=== PATIENT | male | born 1975 | race Caucasian/White ===

== ENCOUNTER 2016-07-11 11:54 | Emergency (ER) | payer MEDICAID ==
[~2016-07-11] VITALS: Ht 165.1 cm; Wt 100.7 kg
[2016-07-11 12:09] VITALS: BP 150/94
--- NOTE | 2016-07-11 12:38 | NUR ---
PATIENT TO BED 7 AT THIS TIME.
--- NOTE | 2016-07-11 12:44 | NUR ---
PT STATES LEFT RIB PAIN FOR 3 DAYS . DENIES N/V/D; SKIN IS PINK/WARM/DRY; AAOX4 WITH EVEN AND STEADY GAIT; PT DENIES ANY FEVER, CP, SOB, OR COUGH AT THIS TIME; PATIENT STATES PAIN OF 8/10 AT THIS TIME; VSS; PATIENT POSITIONED FOR COMFORT; HOB ELEVATED; BED DOWN.
--- NOTE | 2016-07-11 13:40 | NUR ---
PT RESTING IN BED. STATES NO PAIN WITHOUT MOVEMENT. NO S/S OF RESPIRATORY DISTRESS NOTED.
--- NOTE | 2016-07-11 13:50 | NUR ---
DR. CARMONA PRESENTED AT BEDSIDE TO ASSESS PT.
[2016-07-11] MEDS ORDERED: KETOROLAC 60 MG/2 ML VIAL IM ONE (13:55)
--- NOTE | 2016-07-11 14:47 | NUR ---
Patient discharged with v/s stable. Written and verbal after care instructions given and explained. Patient alert, oriented and verbalized understanding of instructions. Ambulatory with steady gait. All questions addressed prior to discharge. ID band removed. Patient advised to follow up with PMD. Rx of MOTRIN ,PRILOSEC, NORCO given. Patient educated on indication of medication including possible reaction and side effects. Opportunity to ask questions provided and answered.
[2016-07-11 14:49] VITALS: BP 132/82
== END 2016-07-11 14:47 | disposition home or self-care (01) ==
LOC: MED 12:15
DX: S20.212A Contusion of left front wall of thorax, initial encounter (principal); X58.XXXA Exposure to other specified factors, initial encounter; Y93.89 Activity, other specified; Y92.89 Other specified places as the place of occurrence of the external cause; Y99.8 Other external cause status
CPT/HCPCS: 71101; 96372; 99284; J1885